=== PATIENT | female | born 2005 | race Caucasian/White ===

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

== ENCOUNTER 2024-09-27 11:43 | Emergency (ER) | payer MEDICAID ==
[~2024-09-27] VITALS: Ht 170.2 cm; Wt 53.8 kg
[~2024-09-27 11:43] MED LIST changes: -CEPH-585 PO
[2024-09-27 12:17] LABS: WHITE BLOOD COUNT 6.2 X10'3 (4.5-11.0)
[2024-09-27 12:19] LABS: BASOPHILS % (AUTO) 0.4 % (0-1); EOSINOPHILS # (AUTO) 0.1 X10'3 (0-0.9); EOSINOPHILS % (AUTO) 0.9 % (0-6); HEMOGLOBIN 13.7 g/dl (12.0-16.0); LYMPHOCYTES # (AUTO) 2.1 X10'3 (1.1-4.8); LYMPHOCYTES % (AUTO) 34.1 % (21-51); MEAN CORPUSCULAR HEMOGLOBIN 29.6 PG (27.0-31.0); MEAN CORPUSCULAR HGB CONC 34.2 g/dL (33.0-36.5); MEAN CORPUSCULAR VOLUME 86.7 FL (78-98); MEAN PLATELET VOLUME 8.2 FL (7.4-10.4); MONOCYTES # (AUTO) 0.5 X10'3 (0-0.9); MONOCYTES % (AUTO) 8.1 % (2-12); NEUTROPHILS # (AUTO) 3.5 X10'3 (1.8-7.7); NEUTROPHILS % (AUTO) 56.5 % (42-75); PLATELET COUNT 303 X10'3 (140-440); RED BLOOD COUNT 4.61 X10'6 (4.20-5.60); RED CELL DISTRIBUTION WIDTH 12.7 % (11.5-14.5)
[2024-09-27] MEDS: fentaNYL/PF 50MCG/1 ML 2ML syringe IV ONE (12:25)
[2024-09-27] MEDS: ondansetron/PF 4mg/2ml inj IV ONE (12:25)
[2024-09-27 12:33] LABS: ALANINE AMINOTRANSFERASE 27 U/L (12-78); ALBUMIN 3.4 G/DL (3.4-5.0); ALBUMIN/GLOBULIN RATIO 1.1 (1.1-1.5); ALKALINE PHOSPHATASE 70 IU/L (20-180); ANION GAP 8 (8-16); ASPARTATE AMINO TRANSFERASE 27 U/L (10-37); BILIRUBIN,TOTAL 0.3 MG/DL (0.1-1.0); BLOOD UREA NITROGEN 4 MG/DL (7-18); CALCIUM 8.7 MG/DL (8.5-10.1); CHLORIDE 104 MMOL/L (99-107); CREATININE 0.67 MG/DL (0.40-0.90); GLUCOSE 90 MG/DL (70-104); LIPASE 35 U/L (16-77); POTASSIUM 4.1 MMOL/L (3.5-5.1); SODIUM 138 MMOL/L (135-145); TOTAL CARBON DIOXIDE 26.3 MMOL/L (24-32); TOTAL PROTEIN 6.6 G/DL (6.4-8.2); eCRCL 115 ML/MIN; eGFR > 90 ML/MIN
[2024-09-27] MEDS: ketorolac trometh 30MG/ML vial 30 MG/ML VIAL IV ONE (12:35)
[2024-09-27] MEDS: normal saline 1000ml 1,000 ML IV ONE (12:35)
[2024-09-27 12:40] LABS: HCG SERUM QL NEGATIVE
[2024-09-27] MEDS ORDERED: TAMS-55 PO (13:40)
[2024-09-27] MEDS ORDERED: TRAM50TA2 PO (13:40)
[2024-09-27 13:41] VITALS: BP 98/59; PULSE 80; O2SAT 98
[2024-09-27 13:50] VITALS: TEMP 97.7
[2024-09-27 13:55] VITALS: RESP 18
== END 2024-09-27 13:55 | disposition home or self-care (01) ==
LOC: ER 11:43
DX: N20.0 Calculus of kidney (principal)
CPT/HCPCS: 36415; 74176; 80053; 83690; 84703; 85025; 96361; 96374; 99285; J1885; J7030